=== PATIENT | female | born 1980 | race Caucasian/White ===

== ENCOUNTER 2019-08-06 11:31 | Emergency (ER) | payer MEDICAID, SELFPAY ==
[2019-08-06 11:33] VITALS: BP 151/88; PULSE 76; RESP 16; TEMP 36.4; O2SAT 98; BMI 30.7
--- NOTE | 2019-08-06 12:05 | RAD_ITS ---
STUDY: X-RAY CHEST REASON FOR EXAM: Female, 39 years old. Tachycardia TECHNIQUE: Single AP portable view of the chest. COMPARISON: None. FINDINGS: The lungs are clear and expanded. There is no demonstrated pleural abnormality. Normal size heart. Normal mediastinum and yi. Normal visualized pulmonary arteries. Normal visualized aortic arch and descending thoracic aorta. Normal visualized thoracic spine. Normal visualized ribs, clavicles, and shoulders. There is no demonstrated abnormality of the visualized soft tissue structures of the upper abdomen. RAD/Chest 1 View (Portable) IMPRESSION: Normal x-ray examination of the chest. Electronically Signed: Beto Kim MD at 12:44 EDT , Service support ,
--- NOTE | 2019-08-06 12:05 | EKG12_ITS ---
Test Reason : PALPITATIONS Blood Pressure : / mmHG Vent. Rate : 060 BPM Atrial Rate : 060 BPM P-R Int : 168 ms QRS Dur : 074 ms QT Int : 416 ms P-R-T Axes : 050 027 048 degrees QTc Int : 416 ms Normal sinus rhythm Normal ECG Confirmed by CAROLINA MAYO, GAIL ([id number]), online editor NICO SALAS ([id number]) on 08/13/2019 11:02:34 AM Referred By: DC Confirmed By:ALEJANDRA FIGUEROA MD
[2019-08-06 12:39] VITALS: BP 124/91; BP 132/93; BP 135/83; PULSE 66; PULSE 72; PULSE 86
[2019-08-06 12:41] LABS: Absolute Lymphocyte Count 1.78 X10^3/uL (0.83-4.51); Absolute Neutrophil Count 2.2 X10^3/uL (2.0-7.7); Basophil# 0.02 X10^3/uL; Basophil% 0.5 % (0-1); Eosinophil# 0.04 X10^3/uL; Eosinophils% 0.9 % (0-5); Hematocrit 42.1 % (37-47); Hemoglobin 14.1 g/dL (12.0-15.0); Lymphocyte # 1.78 X10^3/ul (4.0); Lymphocyte % 40.8 % (19-41); Mean Corp Hgb Conc 33.5 g/dL (32-36); Mean Corpuscular Hgb 31.3 pg (27.0-32.0); Mean Corpuscular Volume 93.3 fL (81-99); Mean Platelet Vol. 11.2 fl (6.2-12.0); Monocyte# 0.36 X10^3/uL; Monocyte% 8.3 % (0-10); NRBC Flagged by Analyzer 0 % (0-5); Neutrophil # 2.15 X10^3/uL (2.7-7.7); Neutrophil % 49.3 % (47-70); Platelet Count 158 K/mm3 (150-450); RBC Distribution Width CV 13.5 % (11.6-14.6); RBC Distribution Width SD 46.3 fl (35.1-43.9); Red Blood Count 4.51 M/mm3 (4.2-5.4); White Blood Count 4.4 K/mm3 (4.4-11.0)
[2019-08-06 12:52] VITALS: O2SAT 99
[2019-08-06 13:01] VITALS: PULSE 95; RESP 19; O2SAT 98; O2SAT 99
[2019-08-06 13:06] LABS: BUN 9 mg/dL (7-18); Creatinine, Serum 0.91 mg/dL (0.55-1.02); EST Glomerular Filtration Rate 73 mL/min (>60); Estimated Creatinine Clearance 72.38 ml/min; Glucose 88 mg/dL (74-106)
[2019-08-06 13:07] LABS: Anion Gap 9 (5-15); BUN/Creat Ratio 9.9 RATIO (10-20); Calcium,Total 9.2 mg/dL (8.5-10.1); Chloride 108 mmol/L (98-107); Est Glom Filt Rate - Afr Amer 89 mL/min (>60); Potassium 3.7 mmol/L (3.5-5.1); Sodium Level 143 mmol/L (136-145); Thyroid Stim Hormone (TSH) 1.16 uIU/mL (0.358-3.74)
[2019-08-06 13:16] LABS: Internal QC Validated? YES +Cl - CLEAR BKGD; Pregnancy, Serum, hCG Quali. NEGATIVE Negative
--- NOTE | 2019-08-06 13:47 | ED.VISSUMM ---
- ER Visit Summary Date of Service: 08/06/19 Chief Complaint: Heart rate issues History of Present Illness: The patient is a 39 F with a heart rate ranging from 2 oh 5-43 today. She found this information based on her apple watch. The patient feels dizzy but otherwise has no symptoms. Denies any history of dysrhythmia or SVT. 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 No history of A. fib, SVT, or bradycardia. She takes no medications. Physical Examination: Afebrile and vital signs unremarkable. Heart regular rate and rhythm. Lungs clear. Extremity is nontender with no edema. Skin normal in color. Alert and oriented. No acute distress. Test Results: EKG showed sinus rhythm at a rate 60. Patient was placed on a monitor. CBC, PT, troponin, hCG, and TSH are all normal. Chest x-ray normal. Emergency Department Course and Treatment: Patient was placed on a monitor. No further dysrhythmias or bradycardia. Orthostatics were negative. Given that the patient's testing here is unremarkable and her monitor was completely normal, I believe she is appropriate for outpatient follow-up. There is nothing to suggest A. fib, SVT, bradycardia, V. tach, or any other dysrhythmias. Patient should return if she has recurrent issues. There is no indication to start treatment at this point. Patient will be discharged to follow-up with cardiology as an outpatient. Return for any new or worsening issues. Treatment Plan: As above Disposition: Discharge Impression: 1. Tachycardia This note was generated with [employer] dictation software. It may contain incorrect words, spelling, and punctuation that were not noted in review of the chart prior to signing ED Disposition - Plan for ED Patient: Instructions: [employer] Referrals: Rizwan Inman MD [STAFF PHYSICIAN] - Surya Zavala DO [Primary Care Provider] -
--- NOTE | 2019-08-06 13:49 | ED.DEP ---
ED Disposition - Plan for ED Patient: Instructions: [employer] Referrals: Surya Zavala DO [Primary Care Provider] - Rizwan Inman MD [STAFF PHYSICIAN] -
[2019-08-06 13:50] VITALS: PULSE 80; RESP 17; O2SAT 97
== END 2019-08-06 14:23 | disposition home or self-care (01) ==
LOC: ED 12:56
PROVIDERS: Emergency Provider Emergency Medicine; Family Provider Family Medicine; PCP Family Medicine
DX: R00.0 Tachycardia, unspecified (principal)
CPT/HCPCS: 71045; 80048; 84443; 84484; 84703; 85025; 93005; 99285; A4216